=== PATIENT | female | born 1985 | race African-American/Black ===

== ENCOUNTER 2016-11-17 04:51 | Inpatient (IN) | payer MEDICAID ==
[2016-11-17] VITALS (18 sets, daily range): BP systolic 108–144; BP diastolic 65–91; Ht 162.6 cm; Wt 45.4 kg
[~2016-11-17] VITALS: Ht 162.6 cm; Wt 45.4 kg
[2016-11-17 05:55] LABS: ALBUMIN 3.8 g/dL (3.4-5.0); ALKALINE PHOSPHATASE 185 U/L (46-116); ALT (SGPT) 89 U/L (10-68); CALC OSMOLALITY 276 mosm/kg (275-300); CALCIUM 9.1 mg/dL (8.5-10.1); CARBON DIOXIDE 23.8 mmol/L (21.0-32.0); CHLORIDE - SERUM 104 mmol/L (98-107); CREATININE - SERUM 0.9 mg/dL (0.6-1.3); GLUCOSE 92 mg/dL (74-106); POTASSIUM - SERUM 3.5 mmol/L (3.5-5.1); PROTEIN - SERUM 6.9 g/dL (6.4-8.2); RBC 2.07 10x6/uL (4.00-5.40); SODIUM 139 mmol/L (136-145); UREA NITROGEN 10 mg/dL (7-18); WBC 23.2 10x3/uL (4.8-10.8); eGFR NON AFRICAN AMERICAN 78 mL/min (90-120)
[2016-11-17 05:56] LABS: HEMATOCRIT 18.2 % (36.0-48.0); HEMOGLOBIN 6.3 g/dL (12-16); MCH 30.4 pg (26.0-34.0); MCHC 34.6 g/dL (31.0-37.0); MCV 87.9 fL (80.0-100.0); MEAN PLATELET VOLUME 11.7 fL (7.4-10.4); PLATELET COUNT 287 10x3/uL (130-400); RDW 21.7 % (11.5-14.5)
[2016-11-17 06:06] LABS: HCG SERUM NEGATIVE (NEGATIVE)
[2016-11-17 06:13] LABS: ANISOCYTOSIS 1+; EOSINOPHILS 3 % (0-7); LYMPHOCYTES 35 % (15-50); MONOCYTES 5 % (2-11); NEUTROPHILS 56 % (40-80); PLATELET ESTIMATE NORMAL; POLYCHROMASIA 1+; SICKLE CELLS 2+; TARGET CELLS 1+
[2016-11-17 07:38] LABS: APPEARANCE HAZY (CLEAR); BILIRUBIN NEGATIVE (NEGATIVE); COLOR YELLOW (YELLOW); GLUCOSE NEGATIVE (NEGATIVE); KETONE NEGATIVE (NEGATIVE); LEUKOCYTE ESTERASE NEGATIVE (NEGATIVE); NITRITE NEGATIVE (NEGATIVE); PROTEIN 2+ mg/dL (NEGATIVE); UROBILINOGEN NORMAL (NORMAL)
[2016-11-17 07:42] LABS: WHITE CELLS - URINE 0-5 /hpf (0-5)
[2016-11-17 07:43] LABS: BACTERIA MODERATE /hpf (NONE SEEN); MUCUS <1+ /lpf (NONE SEEN); UDS - AMPHET NEGATIVE QUAL (NEGATIVE); UDS - BARB NEGATIVE QUAL (NEGATIVE); UDS - BENZO NEGATIVE QUAL (NEGATIVE); UDS - COCAINE NEGATIVE QUAL (NEGATIVE); UDS - METH NEGATIVE QUAL (NEGATIVE); UDS - OPIATE POSITIVE QUAL (NEGATIVE); UDS - PCP NEGATIVE QUAL (NEGATIVE); UDS - THC POSITIVE QUAL (NEGATIVE)
[2016-11-17] MEDS ORDERED: HYDROCODONE-APA1 TAB PO (08:40)
[2016-11-17] MEDS ORDERED: FOLIC ACID1 MG PO (08:40)
--- NOTE | 2016-11-17 16:08 | NUR ---
REQUESTING PAINMEDS.EXPLAINED TO PT Q4H.SHE REQUEST CALL TO MD FOR MORE OR INCREASED FREQUENCY.
--- NOTE | 2016-11-17 16:20 | NUR ---
ANSWERED PHONE WHEN DR. DILLON'S NURSE, MOHAMUD, CALLED. NEW PAIN MED ORDERS RECEIVED AND PUT INTO COMPUTER. ALSO INFORMED SARAI OF THE NEW ORDERS.
--- NOTE | 2016-11-17 17:57 | NUR ---
STATES PAIN BETTER,BUT STILL SAYS ITS 7/10 SCALE.SAYS THAT IT IS STILL HELPING.HAS EATEN 50% OF DINNER.
[2016-11-18] VITALS: BP 132/75
--- NOTE | 2016-11-18 01:27 | NUR ---
REC'D. AT [facility]. OF SHIFT REQUESTING PAIN MED INFORMED WILL BE DUE AT 2029 HAD LAST DOSE AT 1630. VOICES UNDERSTANDING.RATING PAIN 9 ON 1-10 PAIN SCALE
--- NOTE | 2016-11-18 02:55 | NUR ---
PT IS RESTING QUIET BUT THE IV ALARM WENT OFF AND WOKE HER. IV WAS FIXED AND SHE STAYED QUIET IN BED WITH A CHILD IN THE BED WITH HER. NO DISTRESS NOTED. THE BED IS LOW, RAILS UP X'S 2 WITH THE CALL LIGHT AT HAND.
[2016-11-18 04:00] VITALS: BP 125/64
[2016-11-18 06:42] LABS: BASOPHILS 0.3 % (0-2); EOSINOPHILS 3.3 % (0-7); IMMATURE GRANULOCYTES 0.3 % (0-5); MCHC 34.3 g/dL (31.0-37.0); MEAN PLATELET VOLUME 11.3 fL (7.4-10.4); MONOCYTES 9.2 % (2-11); NEUTROPHILS 50.9 % (40-80); RDW 18.8 % (11.5-14.5); WBC 17.8 10x3/uL (4.8-10.8)
[2016-11-18 06:44] LABS: HEMOGLOBIN 9.6 g/dL (12-16); MCV 84.6 fL (80.0-100.0); PLATELET COUNT 229 10x3/uL (130-400); RBC 3.31 10x6/uL (4.00-5.40)
[2016-11-18 07:05] LABS: CALC OSMOLALITY 278 mosm/kg (275-300); CALCIUM 8.5 mg/dL (8.5-10.1); CARBON DIOXIDE 25.4 mmol/L (21.0-32.0); CHLORIDE - SERUM 108 mmol/L (98-107); CREATININE - SERUM 0.9 mg/dL (0.6-1.3); GLUCOSE 83 mg/dL (74-106); SODIUM 141 mmol/L (136-145); UREA NITROGEN 10 mg/dL (7-18); eGFR NON AFRICAN AMERICAN 78 mL/min (90-120)
[2016-11-18 07:10] LABS: POTASSIUM - SERUM 4.1 mmol/L (3.5-5.1)
--- NOTE | 2016-11-18 07:55 | NUR ---
SOME COMPLAINTS OF A HEADACHE, DR ARUN SCHAFER, DENIES OTHER NEEDS, BED LOWEST POSITION, CALL LIGHT IN REACH, WILL CONTINUE TO MONITOR
[2016-11-18 08:23] VITALS: BP 116/71
--- NOTE | 2016-11-18 10:30 | NUR ---
PT AOX4 RESP EVEN AND NONLABORED PT DENIES NEEDS AT THIS TIME PT HERE FOR SC ANEMIA FOR THIS VISIT IV TO RIGHT CHEST PORT PATENT AND INTACT AT THIS TIME. SRX2 BED AT LOWEST SETTING CALL LIGHT WITHIN REACH WILL CONTINUE TO MONITOR
--- NOTE | 2016-11-18 12:39 | HP ---
PATIENT: KYLE VILLEGAS MEDICAL RECORD: [id number] ACCOUNT: [id number] LOCATION:[id number] : 87 ADMISSION DATE: 11/17/16 HISTORY AND PHYSICAL EXAMINATION DATE OF ADMISSION: 11/17/2016 CHIEF COMPLAINT: Sickle cell crisis. HISTORY OF PRESENT ILLNESS: This is a 31-year-old black female with a history of sickle cell disease. She moved to the [facility] from [place] about a month ago. She states she had hospitalizations about every 3 or 4 months for pain crisis. She was just at [facility] from 11/09/2016 until 11/11/2016. She was given 1 unit of blood. Her hemoglobin was around 6 when she was admitted and around 7.5 when she was discharged. She states she has remained in pain since that hospitalization. Pain mostly is in her back, goes to her head and to her chest and in most of her joints. She denies fever, chills, nausea or vomiting. No dysuria. Today, her urinalysis shows moderate bacteria, though there are 10-25 epithelial cells. Her urine drug screen is positive for opiates (she is on [place]) and positive for marijuana, which she admits that she takes. Her hemoglobin today is 6.3. She is admitted for sickle pain crisis and anemia. PAST MEDICAL AND SURGICAL HISTORY: She has sickle cell anemia. She has had a section. She has had a port placed. ALLERGIES: ZITHROMAX AND TRAMADOL. HOME MEDICATIONS: [place] 10/325 q.6 hours p.r.n. pain and folic acid 1 mg once a day. HABITS: She states she is a former smoker. Denies any alcohol. FAMILY HISTORY: Her mother is alive; she has diabetes and some sort of heart problem. Father is alive, but she does not know her father's history and does not really know him. SOCIAL HISTORY: The patient states she is , lives with her . They have moved to the [facility] just about a month ago. REVIEW OF SYSTEMS: GENERAL: No major weight changes. HEENT: No particular sinus or allergy problems. RESPIRATORY: No history of asthma or emphysema. No recent pneumonia. GASTROINTESTINAL: Denies diarrhea or constipation. No blood per rectum. GENITOURINARY: No significant problems there. MUSCULOSKELETAL: She has diffuse joint aches and pains with her sickle cell anemia. NEUROLOGIC: No migraines or headaches. PSYCHIATRIC: No depression or melancholia. PHYSICAL EXAMINATION: VITAL SIGNS: Temperature 98.1, pulse 85, respirations 18, blood pressure 127/81. GENERAL: She does not appear to be in acute distress. She is awake and alert. HEENT: Grossly within normal limits. HISTORY AND PHYSICAL [id number] VILLEGAS,KYLE NECK: Supple. No JVD or bruit. HEART: Regular rate and rhythm without murmur. LUNGS: Clear. ABDOMEN: Soft, flat, nontender. EXTREMITIES: No edema. MUSCULOSKELETAL: She has diffuse aches and pains throughout her body and her back. LABORATORY DATA: Urinalysis showed yellow, hazy urine with 2+ protein, 1+ blood, 5-10 red blood cells, 0-5 white blood cells, there are 10-25 epithelial cells and moderate bacteria. Urine drug screen is positive for opiates and THC. CBC with a white count of 23,200, hemoglobin 6.3, hematocrit 18.2, platelets numbered 287,000; with 56% neutrophils, 35% lymphocytes. Reticulocyte count is 28.41. Basic metabolic panel is all normal. Total bilirubin is elevated at 3.7, AST 93, ALT 89, alkaline phosphatase 185. IMAGING: Chest x-ray is done showing chronic changes. There may be infiltrate and atelectasis in the right mid to upper chest. ASSESSMENT: 1. Sickle cell crisis. 2. Pneumonia. 3. Sickle cell anemia. PLAN: We will check Hemoccults. We will start her on antibiotics for the pneumonia on chest x-ray. Dr. Larkin is being consulted for sickle cell. Other tests and procedures as warranted. TRANSINT:[id number] Voice Confirmation ID: [id number] DOCUMENT ID: [id number] MARYLOU DIAS MD at 1239 CC: [id number] DICTATION DATE: 11/17/16 1107 [employer] TRAVEL COUNSELOR: 11/17/16 1149 ADM IN [place] [id number] [place] [address]
[2016-11-18 12:55] VITALS: BP 127/86
[2016-11-18 16:14] VITALS: BP 112/69
[2016-11-18 19:00] VITALS: BP 135/83
--- NOTE | 2016-11-18 19:30 | NUR ---
RECIEVED SHIFT REPORT. PT IS LYING IN BED. ALERT AND ORIENTED AND ABLE TO VERBALIZE NEEDS. IV IS PATENT AND FLUIDS ARE RUNNING PER ORDER. PT IS AMBULATORY BUT WAS INSTRUCTED TO CALL FOR ANY ASSISTANCE NEEDED. PT O2 OFF AT THIS TIME AND SHE STATES SHE ONLY USES IS PRN. PT STATES PAIN IS 7/10. NO NEEDS ARE VERBALIZED AT THIS TIME. FAMILY IS AT THE BEDSIDE. WILL CONTINUE TO MONITOR. SIDE RAILS ARE UP X 2. BED IS IN LOWEST POSITION. CALL LIGHT IS WITHIN REACH.
--- NOTE | 2016-11-18 20:05 | NUR ---
SHIFT ASSESSMENT COMPLETED. PT STATUS REMAINS UNCHANGED. REQUESTING HUMIDIFICATION APPLIED TO O2. NO FURTHER NEEDS AT THIS TIME. WILL MONITOR. SIDE RAILS X 2. BED LOW. CALL LIGHT IN REACH.
[2016-11-19] VITALS: BP 140/83
[2016-11-19 04:00] VITALS: BP 133/85
[2016-11-19 04:59] LABS: HEMATOCRIT 28.5 % (36.0-48.0); HEMOGLOBIN 9.5 g/dL (12-16); MCHC 33.3 g/dL (31.0-37.0); MEAN PLATELET VOLUME 11.5 fL (7.4-10.4); PLATELET COUNT 244 10x3/uL (130-400); RBC 3.28 10x6/uL (4.00-5.40); RDW 19.7 % (11.5-14.5); WBC 16.4 10x3/uL (4.8-10.8)
[2016-11-19 05:01] LABS: MCV 86.9 fL (80.0-100.0)
[2016-11-19 05:13] LABS: CALC OSMOLALITY 280 mosm/kg (275-300); CALCIUM 8.4 mg/dL (8.5-10.1); CARBON DIOXIDE 28.1 mmol/L (21.0-32.0); CHLORIDE - SERUM 107 mmol/L (98-107); CREATININE - SERUM 0.8 mg/dL (0.6-1.3); GLUCOSE 106 mg/dL (74-106); POTASSIUM - SERUM 4.1 mmol/L (3.5-5.1); SODIUM 141 mmol/L (136-145); UREA NITROGEN 12 mg/dL (7-18); eGFR NON AFRICAN AMERICAN 90 mL/min (90-120)
[2016-11-19 05:53] LABS: EOSINOPHILS 4 % (0-7); LYMPHOCYTES 26 % (15-50); MONOCYTES 8 % (2-11); NEUTROPHILS 58 % (40-80)
[2016-11-19 05:54] LABS: PLATELET ESTIMATE NORMAL; PLATELET MORPHOLOGY GIANT PLTS PRESENT
--- NOTE | 2016-11-19 06:53 | NUR ---
PT RECIEVED 6 MG OF MORPHINE. UPON WASTING IN PYXIS THIS NURSE PUT THAT I WASTED 6 MG OF MORPHINE. THE CORRECT AMOUNT WASTED WAS 2 MG. PHARMACY WAS NOTIFIED AND BENJAMIN STATED THAT I COULD NOT FIX IT IN THE PYXIS BUT TO MAKE A NURSING NOTE REGARDING INCIDENT.
--- NOTE | 2016-11-19 07:30 | NUR ---
PT ASSESSMENT COMPLETE AWAKE AND ALERT ORINTED X 3 PT WITH RIGHT UPPER CHEST INFUSAPORT NOTED ACCESSED DRESSING CLEAN DRY AND INTACT. CALL LIGHT IN REACH SIDE RAILS UP X 2 UP AD CARSON.
[2016-11-19 08:27] VITALS: BP 117/76
--- NOTE | 2016-11-19 10:25 | NUR ---
Patient Name: KYLE VILLEGAS Admission Status: ER Accout number: [id number] Admission Date: 11-17-2016 : 1985 Admission Diagnosis: Attending: RADHA Current LOS: 2 Anticipated DC Date: 11-21-2016 Planned Disposition: Home Primary Insurance: MEDICAID [place] Discharge Planning Comments: CM MET WITH PATIENT REGARDING D/C NEEDS AND PLANS. PATIENT STATED SHE LIVES WITH HER SPOUSE (THO) AND HE WILL DRIVE HER HOME AT DISCHARGE. PATIENT STATED THEY HAVE 3 STEPS W/RAILS TO ENTER HOME AND NO STAIRS INSIDE. PATIENT IS INDEPENDENT WITH HER CARE AND HAS NO DME AT HOME. PATIENTS PCP IS DR. SALAZAR AT [place] AND PHARMACY IS [facility]. PATIENT DOES NOT WANT HOME HEALTH. CM WILL CONTINUE TO FOLLOW PATIENT WITH D/C NEEDS AND PLANS. PCP DR. MARTIN CARVER AT [facility]- [phone] THO VILLEGAS (SPOUSE) [phone] Payroll Benefits Administrator: Virginie Lucero Is the patient Alert and Oriented? Yes 0 * How many steps to enter\exit or inside your home? 3 W/RAILS 0 * PCP DR. SALAZAR IN [place] 0 * Pharmacy [facility] 0 * Preadmission Environment Home with Family 0 * ADLs Independent 0 * Equipment None 0 * List name and contact numbers for known caregivers / representatives who currently or will assist patient after discharge: THO VILLEGAS (SPOUSE) [phone] 0 * Additional services required to return to the preadmission environment? Yes 0 * Can the patient safely return to the preadmission environment? Yes 0 * Has this patient been hospitalized within the prior 30 days at any hospital? Yes 0 Grand Total: 0
--- NOTE | 2016-11-19 10:49 | NUR ---
ALERT IN BED. C/O PAIN /10 TO BACK AND LEGS. 6MG MORPHINE ADMINISTERED SLOW IVP PER PRN ORDER. NO FURTHER NEEDS VOICED. SIDE RAILS UP X2. BED IN LOW POSITION. CALL LIGHT IN REACH. FAMILY PRESENT.
[2016-11-19 11:39] VITALS: BP 121/79
--- NOTE | 2016-11-19 15:02 | NUR ---
PT RESTING IN BED WITH SON A BEDSIDE NO DISRESS NOTED VOICES ALL NEEDS TO STAFF CALL LIGHT IN REACH
[2016-11-19 16:13] VITALS: BP 135/83
[2016-11-19 18:00] VITALS: BP 130/76
--- NOTE | 2016-11-19 19:00 | NUR ---
PATIENT IN BED WATCHING TV. AAOX4. RR EVEN AND UNALBORED. 0 S/S OF DISTRESS. STATES PAIN IS A 7/10. RIGHT PORT PATENT WITH DRESSING CDI. FAMILY IN ROOM. CALL LIGHT WITHIN REACH.
--- NOTE | 2016-11-19 20:05 | NUR ---
NORCO GIVEN FOR PAIN. WILL REASSESS.
--- NOTE | 2016-11-19 23:00 | NUR ---
PATIENT'S HAS BEEN AT DESK MULTIPLE TIMES. HE IS VERY ANGRY DEMANDING TO KNOW WHY HE HAS NOT SEEN DR. DILLON AND WHY PATIENT HAS NOT BEEN D/C. SPOKE WITH MOHAMUD WHO STATED THAT PATIENT WAS KEPT BECAUSE SHE WAS ON IV PAIN MEDICATION THAT DAY STILL AND NEEDED TO BE OFF OF IT BEFORE SHE WAS DISCHARGED. PATIENT WAS UNDER IMPRESSION THAT SHE COULD "LEAVE AT 9 OCLOCK AT NIGHT LONG SHE DID NOT HAVE ANYMORE IV PAIN MEDICATION." I ATTEMPTED TO EXPLAIN TO PATIENT THAT IT WAS A MISCOMMUNICATION, THAT SHE COULD MOST LIKELY LEAVE IN THE MORNING IF SHE DID NOT HAVE IV PAIN MEDICATION AND DID WELL. PATIENT AND SEEM TO BE HAPPY WITH THIS LONG THERE ARE "NO MORE MISCOMMUNICATIONS." MOHAMUD STATED SHE WOULD INFORM DR. DILLON OF THE SITUATION IN THE MORNING AROUND 0800.
[2016-11-20] VITALS: BP 125/78
[2016-11-20 04:00] VITALS: BP 129/85
--- NOTE | 2016-11-20 05:00 | NUR ---
PATIENT REFUSED BLOOD DRAW.
[2016-11-20 08:48] VITALS: BP 127/75
--- NOTE | 2016-11-20 08:58 | NUR ---
CM REASSESSMENT NOTE: PATIENT IS DISCHARGING HOME TODAY. PATIENT HAS NO NEEDS FOR DISCHARGE AND REFUSED HOME HEALTH. PATIENTS SPOUSE WILL DRIVE HER HOME.
--- NOTE | 2016-11-20 09:30 | NUR ---
PT DISCHARGED PER ORDERS PORT ACDESS REMOVED PER ORDER COVERED WITH BANDAID. NO DISTRESS NOTED LEFT VIA WHEELCHAIR WITH SPOUSE AT [employer] APPRENTICE
== END 2016-11-20 09:38 | disposition home or self-care (01) | DRG 811 ==
LOC: D.ER 04:51 → D.MS 07:19
PROVIDERS: Emergency Medicine; Legal Medicine; ADMIT Family Medicine
DX: D57.00 Hb-SS disease with crisis, unspecified (principal); J18.9 Pneumonia, unspecified organism